=== PATIENT | female | born 1995 | race American Indian/Alaskan Native ===

== ENCOUNTER 2018-12-08 09:25 | Emergency (ER) | payer SELFPAY ==
[2018-12-08 09:43] VITALS: BP 110/77
--- NOTE | 2018-12-08 10:04 | Emergency Department Report ---
ED Rash HPI - HPI Chief Complaint: Skin Rash Stated Complaint: CHEST AND SPOTS ON CHEST Time Seen by Provider: 12/08/18 09:54 Duration: 3 Days Location: Chest, Back, Abdomen, Upper Extremities Suspected Cause: Unknown Rash Symptoms: Yes Itching, No Facial Swelling, No Tongue/Oral Swelling, No Breathing Difficulties, No Choking Sensation, No Wheezing/Dyspnea, No Peeling, No Blistering, No Fever, No Lightheaded, No Malaise, No Myalgias Severity: moderate ED Review of Systems ROS: Stated complaint: CHEST AND SPOTS ON CHEST Other details as noted in HPI Comment: All other systems reviewed and negative ED Past Medical Hx - Past Medical History Previous Medical History?: No - Surgical History Past Surgical History?: No - Social History Smoking Status: Never Smoker - Medications Home Medications: Home Medications Medication Instructions Recorded Confirmed Last Taken Type Triamcinolone 0.1% [Kenalog 0.1% 1 applic TP TID #1 tube 12/08/18 Unknown Rx CREAM] predniSONE [Deltasone] 10 mg PO .TAPER #21 tab 12/08/18 Unknown Rx Rash Exam - Exam General: Vital signs noted. No distress. Alert and acting appropriately. HEENT: No Periorbital Edema, No Conjuctival Injection, No Chemosis, No Perioral Edema, No Tongue Edema, No Uvular Edema, No Compromised Airway, No Drooling Lungs: Yes Good Air Exchange (Normal Breath Sounds), No Wheezes, No Ronchi, No S tridor, No Cough, No Labored Respirations, No Retractions, No Use of Accessory Muscles, No Other Abnormal Lung Sounds Heart: Yes Regular, No Murmur Skin: Yes Maculopapular Rash Other: Positive: Abdomen Normal, Neurologic Normal, Musculoskeletal Normal ED Course Vital Signs 12/08/18 09:38 Temperature 97.9 F Pulse Rate 83 Respiratory 18 Rate Blood Pressure 110/77 O2 Sat by Pulse 100 Oximetry ED Medical Decision Making - Medical Decision Making 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 Patient will be discharged home with meds for symptomatic relief. Critical care attestation.: If time is entered above; I have spent that time in minutes in the direct care of this critically ill patient, excluding procedure time. 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
== END 2018-12-08 10:17 | disposition home or self-care (01) ==
LOC: ED 09:25
DX: L21.0 Seborrhea capitis (principal)
CPT/HCPCS: 99282

== ENCOUNTER 2019-04-08 20:59 | Emergency (ER) | payer SELFPAY ==
[2019-04-08 21:07] VITALS: BP 126/79
[2019-04-08] MEDS ORDERED: IBUPROFEN PO ONE (22:50)
[2019-04-08] MEDS ORDERED: DIFLUCAN PO ONE (22:50)
--- NOTE | 2019-04-09 00:18 | Emergency Department Report ---
ED Female HPI - General Chief complaint: Laceration/Recheck/Suture Stated complaint: CUT HERSELF SHAVING PRIVATE AREA Time Seen by Provider: 04/08/19 22:50 Source: patient Mode of arrival: Ambulatory Limitations: No Limitations - History of Present Illness Initial comments: pt is a 23 y/o aaf who presents s/p vaginal abrasion after shaving 5 days ago no with itching erythema then white vagina discarge tp denies concern for STD no contacts prior or since symptoms there is no fever no n/v no abd pain MD Complaint: vaginal discharge (white thick ) Onset/Timin -: days(s) Radiation: non-radiating Severity: mild Severity scale (0 -10): 3 Quality: other (itcing) Consistency: constant Improves with: none Worsens with: none Are you Now?: No Last Menstrual Period: 03/27/19 EDC: 01/01/20 Associated Symptoms: vaginal discharge - Related Data Sexually active: Yes Previous Rx's Medication Instructions Recorded Last Taken Type Triamcinolone 0.1% [Kenalog 0.1% 1 applic TP TID #1 tube 12/08/18 Unknown Rx CREAM] predniSONE [Deltasone] 10 mg PO .TAPER #21 tab 12/08/18 Unknown Rx metroNIDAZOLE [Flagyl] 500 mg PO BID 10 Days #20 tab 04/09/19 Unknown Rx Allergies Allergy/AdvReac Type Severity Reaction Status Date / Time No Known Allergies Allergy Verified 12/08/18 09:43 ED Review of Systems ROS: Stated complaint: CUT HERSELF SHAVING PRIVATE AREA Other details as noted in HPI Constitutional: denies: chills, fever Eyes: denies: eye pain, eye discharge, vision change ENT: denies: ear pain, throat pain Respiratory: denies: cough, shortness of breath, wheezing Cardiovascular: denies: chest pain, palpitations Endocrine: no symptoms reported Gastrointestinal: denies: abdominal pain, nausea, diarrhea Genitourinary: discharge, other (vaginal itching). denies: urgency, dysuria Musculoskeletal: denies: back pain, joint swelling, arthralgia Skin: denies: rash, lesions Neurological: denies: headache, weakness, paresthesias Psychiatric: denies: anxiety, depression Hematological/Lymphatic: denies: easy bleeding, easy bruising ED Past Medical Hx - Past Medical History Previous Medical History?: No - Surgical History Past Surgical History?: No - Social History Smoking Status: Never Smoker Substance Use Type: None - Medications Home Medications: Home Medications Medication Instructions Recorded Confirmed Last Taken Type Triamcinolone 0.1% [Kenalog 0.1% 1 applic TP TID #1 tube 12/08/18 Unknown Rx CREAM] predniSONE [Deltasone] 10 mg PO .TAPER #21 tab 12/08/18 Unknown Rx metroNIDAZOLE [Flagyl] 500 mg PO BID 10 Days #20 tab 04/09/19 Unknown Rx ED Physical Exam - General Limitations: No Limitations General appearance: alert, in no apparent distress - Head Head exam: Present: atraumatic, normocephalic - Eye Eye exam: Present: normal appearance - ENT ENT exam: Present: mucous membranes moist - Neck Neck exam: Present: normal inspection - Respiratory Respiratory exam: Present: normal lung sounds bilaterally. Absent: respiratory distress - Cardiovascular Cardiovascular Exam: Present: regular rate, normal rhythm. Absent: systolic murmur, diastolic murmur, rubs, gallop - GI/Abdominal GI/Abdominal exam: Present: soft, normal bowel sounds. Absent: distended, tenderness, guarding, rebound, rigid, bruit, hernia - Rectal Rectal exam: Present: deferred - External exam: Present: erythema. Absent: swelling, lesions, lacerations, ecchymosis, bleeding Speculum exam: Present: erythema, vaginal discharge. Absent: cervical discharge, vaginal bleeding, foreign body, tissue, laceration Bi-manual exam: Absent: cervical motion tendernes - Extremities Exam Extremities exam: Present: normal inspection, full ROM, normal capillary refill. Absent: tenderness - Back Exam Back exam: Present: normal inspection, full ROM. Absent: tenderness, CVA tenderness (R), CVA tenderness (L), muscle spasm, rash noted - Neurological Exam Neurological exam: Present: alert, oriented X3, CN II-XII intact, normal gait, reflexes normal - Psychiatric Psychiatric exam: Present: normal affect, normal mood - Skin Skin exam: Present: warm, dry, intact, normal color. Absent: rash ED Course Vital Signs 04/08/19 04/08/19 21:03 21:04 Temperature 98.8 F 98.8 F Pulse Rate 90 87 Respiratory 18 18 Rate Blood Pressure 126/79 126/79 O2 Sat by Pulse 99 99 Oximetry ED Medical Decision Making - Medical Decision Making this is bv , makenna vaginitis plan noman rod , follow up with pcp in 2-3 days return to ed if symptoms worsen, pt verbalized agreement and understanding of same. Critical care attestation.: If time is entered above; I have spent that time in minutes in the direct care of this critically ill patient, excluding procedure time. ED Disposition Clinical Impression: Vaginitis Qualifiers: Chronicity: acute Qualified Code(s): N76.0 - Acute vaginitis Disposition: TO HOME OR SELFCARE Is pt being admited?: No Does the pt Need Aspirin: No Condition: Stable Instructions: Vaginitis (ED) Prescriptions: metroNIDAZOLE [Flagyl] 500 mg PO BID 10 Days #20 tab Referrals: GREGORIA TORRES MD [Staff Physician] - 3-5 Days Forms: Work/School Release Form(ED) Time of Disposition: 00:23
== END 2019-04-09 00:36 | disposition home or self-care (01) ==
LOC: ED 20:59
DX: N76.0 Acute vaginitis (principal)
CPT/HCPCS: 99282

== ENCOUNTER 2019-04-11 08:50 | Emergency (ER) | payer SELFPAY ==
--- NOTE | 2019-04-11 10:31 | Emergency Department Report ---
ED Female HPI - General Chief complaint: Skin Rash Stated complaint: BV WORSE WHILE TAKING PRESCRIPTION MEDS Time Seen by Provider: 04/11/19 09:59 Source: patient Mode of arrival: Ambulatory Limitations: No Limitations - History of Present Illness Initial comments: dx BV a few days ago and has increased "bumps"/pain MD Complaint: vaginal discharge, other (rash) Location: labia, perineum Radiation: non-radiating Severity: mild Quality: burning Consistency: constant Improves with: none Worsens with: none Are you Now?: No Associated Symptoms: vaginal discharge - Related Data Previous Rx's Medication Instructions Recorded Last Taken Type Triamcinolone 0.1% [Kenalog 0.1% 1 applic TP TID #1 tube 12/08/18 Unknown Rx CREAM] predniSONE [Deltasone] 10 mg PO .TAPER #21 tab 12/08/18 Unknown Rx metroNIDAZOLE [Flagyl] 500 mg PO BID 10 Days #20 tab 04/09/19 Unknown Rx Valacyclovir HCl [Valtrex] 1,000 mg PO BID #20 tablet 04/11/19 Unknown Rx Allergies Allergy/AdvReac Type Severity Reaction Status Date / Time No Known Allergies Allergy Verified 04/11/19 08:58 ED Review of Systems ROS: Stated complaint: BV WORSE WHILE TAKING PRESCRIPTION MEDS Other details as noted in HPI Comment: All other systems reviewed and negative Genitourinary: as per HPI ED Past Medical Hx - Past Medical History Previous Medical History?: No - Surgical History Past Surgical History?: No - Social History Smoking Status: Never Smoker Substance Use Type: Alcohol - Medications Home Medications: Home Medications Medication Instructions Recorded Confirmed Last Taken Type Triamcinolone 0.1% [Kenalog 0.1% 1 applic TP TID #1 tube 12/08/18 Unknown Rx CREAM] predniSONE [Deltasone] 10 mg PO .TAPER #21 tab 12/08/18 Unknown Rx metroNIDAZOLE [Flagyl] 500 mg PO BID 10 Days #20 tab 04/09/19 Unknown Rx Valacyclovir HCl [Valtrex] 1,000 mg PO BID #20 tablet 04/11/19 Unknown Rx ED Physical Exam - General Limitations: No Limitations General appearance: alert, in no apparent distress - Head Head exam: Present: atraumatic, normocephalic - Eye Eye exam: Present: normal appearance - ENT ENT exam: Present: mucous membranes moist - Neck Neck exam: Present: normal inspection - Respiratory Respiratory exam: Present: normal lung sounds bilaterally. Absent: respiratory distress - Cardiovascular Cardiovascular Exam: Present: regular rate, normal rhythm. Absent: systolic murmur, diastolic murmur, rubs, gallop - GI/Abdominal GI/Abdominal exam: Present: soft, normal bowel sounds. Absent: tenderness - External exam: Present: lesions (c/w HSV in perineum) Speculum exam: Present: vaginal discharge (white, c/w BV) Bi-manual exam: Present: normal bi-manual exam. 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 ED Disposition Clinical Impression: HSV (herpes simplex virus) anogenital infection Disposition: - TO HOME OR SELFCARE Is pt being admited?: No Condition: Good Instructions: Genital Herpes Simplex (ED) Prescriptions: Valacyclovir HCl [Valtrex] 1,000 mg PO BID #20 tablet Referrals: [facility] [Provider Group] - 3-5 Days Time of Disposition: 11:17
[2019-04-11 12:17] VITALS: BP 121/78
== END 2019-04-11 12:16 | disposition home or self-care (01) ==
LOC: ED 08:50
DX: B00.9 Herpesviral infection, unspecified (principal)
CPT/HCPCS: 87591; 99283

== ENCOUNTER 2019-05-25 22:26 | Emergency (ER) | payer OTHER ==
[2019-05-25] MEDS ORDERED: DECADRON IV ONE (23:05)
[2019-05-25] MEDS ORDERED: NACL 0.9% 1000 ML 1,000 ML IV ONE (23:05)
[2019-05-25] MEDS ORDERED: CLEOCIN 900 MG/50 mL 900 MG/50 ML BAG IV ONE (23:05)
--- NOTE | 2019-05-25 23:15 | Emergency Department Report ---
ED ENT HPI - General Chief complaint: Sore Throat Stated complaint: THROAT PAIN TOOK MED X 5DAYS WORSE Time Seen by Provider: 05/25/19 22:41 Source: patient Mode of arrival: Ambulatory Limitations: No Limitations - History of Present Illness Initial comments: Patient is a 23-year-old female who presents to the emergency room with complaints of a sore throat that began 5 days ago. States she has pain with swallowing. pt has been spitting out her secretions secondary to pain. States she had a fever couple days ago. She denies any sick contacts. She states she has been using viscous lidocaine, prednisone, ibuprofen, promethazine cough syrup. she has not seen anyone for this but had left over medication and medication from her sister. She denies any past medical history or allergies to medications. - Related Data Previous Rx's Medication Instructions Recorded Last Taken Type Triamcinolone 0.1% [Kenalog 0.1% 1 applic TP TID #1 tube 12/08/18 Unknown Rx CREAM] predniSONE [Deltasone] 10 mg PO .TAPER #21 tab 12/08/18 Unknown Rx metroNIDAZOLE [Flagyl] 500 mg PO BID 10 Days #20 tab 04/09/19 Unknown Rx Valacyclovir HCl [Valtrex] 1,000 mg PO BID #20 tablet 04/11/19 Unknown Rx Acetaminophen/Codeine [Tylenol 1 tab PO Q6H PRN #7 tab 05/26/19 Unknown Rx /Codeine # 3 tab] Clindamycin [Clindamycin CAP] 450 mg PO TID 7 Days #63 capsule 05/26/19 Unknown Rx Prednisone [predniSONE 10 mg 10 mg PO .TAPER #1 tab.ds.pk 05/26/19 Unknown Rx (6-Day Pack, 21 Tabs)] Allergies Allergy/AdvReac Type Severity Reaction Status Date / Time No Known Allergies Allergy Verified 04/11/19 08:58 ED Dental HPI - General Chief complaint: Sore Throat Stated complaint: THROAT PAIN TOOK MED X 5DAYS WORSE Time Seen by Provider: 05/25/19 22:41 Source: patient Mode of arrival: Ambulatory Limitations: No Limitations - Related Data Previous Rx's Medication Instructions Recorded Last Taken Type Triamcinolone 0.1% [Kenalog 0.1% 1 applic TP TID #1 tube 12/08/18 Unknown Rx CREAM] predniSONE [Deltasone] 10 mg PO .TAPER #21 tab 12/08/18 Unknown Rx metroNIDAZOLE [Flagyl] 500 mg PO BID 10 Days #20 tab 04/09/19 Unknown Rx Valacyclovir HCl [Valtrex] 1,000 mg PO BID #20 tablet 04/11/19 Unknown Rx Acetaminophen/Codeine [Tylenol 1 tab PO Q6H PRN #7 tab 05/26/19 Unknown Rx /Codeine # 3 tab] Clindamycin [Clindamycin CAP] 450 mg PO TID 7 Days #63 capsule 05/26/19 Unknown Rx Prednisone [predniSONE 10 mg 10 mg PO .TAPER #1 tab.ds.pk 05/26/19 Unknown Rx (6-Day Pack, 21 Tabs)] Allergies Allergy/AdvReac Type Severity Reaction Status Date / Time No Known Allergies Allergy Verified 04/11/19 08:58 ED Review of Systems ROS: Stated complaint: THROAT PAIN TOOK MED X 5DAYS WORSE Other details as noted in HPI Comment: All other systems reviewed and negative ED Past Medical Hx - Past Medical History Previous Medical History?: No - Surgical History Past Surgical History?: No - Social History Smoking Status: Never Smoker Substance Use Type: None - Medications Home Medications: Home Medications Medication Instructions Recorded Confirmed Last Taken Type Triamcinolone 0.1% [Kenalog 0.1% 1 applic TP TID #1 tube 12/08/18 Unknown Rx CREAM] predniSONE [Deltasone] 10 mg PO .TAPER #21 tab 12/08/18 Unknown Rx metroNIDAZOLE [Flagyl] 500 mg PO BID 10 Days #20 tab 04/09/19 Unknown Rx Valacyclovir HCl [Valtrex] 1,000 mg PO BID #20 tablet 04/11/19 Unknown Rx Acetaminophen/Codeine [Tylenol 1 tab PO Q6H PRN #7 tab 05/26/19 Unknown Rx /Codeine # 3 tab] Clindamycin [Clindamycin CAP] 450 mg PO TID 7 Days #63 capsule 05/26/19 Unknown Rx Prednisone [predniSONE 10 mg 10 mg PO .TAPER #1 tab.ds.pk 05/26/19 Unknown Rx (6-Day Pack, 21 Tabs)] ED Physical Exam - General Limitations: No Limitations General appearance: alert, in no apparent distress - Head Head exam: Present: atraumatic, normocephalic - ENT ENT exam: Present: other (left sided tonsillar edema with deviation of the uvula, no uvular edema, airway is patent) - Respiratory Respiratory exam: Present: normal lung sounds bilaterally. Absent: respiratory distress, wheezes, rales, rhonchi, stridor, chest wall tenderness, accessory muscle use, decreased breath sounds, prolonged expiratory - Cardiovascular Cardiovascular Exam: Present: regular rate, normal rhythm, normal heart sounds. Absent: systolic murmur, diastolic murmur, rubs, gallop - Neurological Exam Neurological exam: Present: alert, oriented X3 - Psychiatric Psychiatric exam: Present: normal affect, normal mood - Skin Skin exam: Present: warm, dry, intact ED Course Vital Signs 05/26/19 02:01 Temperature 98 F Pulse Rate 81 Respiratory 16 Rate Blood Pressure 117/72 [Left] O2 Sat by Pulse 100 Oximetry ED Medical Decision Making - Lab Data Result diagrams: 05/25/19 23:19 05/25/19 23:19 Lab Results 05/25/19 05/25/19 05/25/19 Range/Units 23:19 23:19 23:19 WBC 14.5 H (4.5-11.0) K/mm3 RBC 4.27 (3.65-5.03) M/mm3 Hgb 10.3 (10.1-14.3) gm/dl Hct 31.7 (30.3-42.9) % MCV 74 L (79-97) fl MCH 24 L (28-32) pg MCHC 32 (30-34) % RDW 17.2 H (13.2-15.2) % Plt Count 343 (140-440) K/mm3 Sodium 138 (137-145) mmol/L Potassium 3.1 L (3.6-5.0) mmol/L Chloride 101.4 (98-107) mmol/L Carbon Dioxide 27 (22-30) mmol/L Anion Gap 13 mmol/L BUN 8 (7-17) mg/dL Creatinine 0.7 (0.7-1.2) mg/dL Estimated GFR > 60 ml/min BUN/Creatinine Ratio 11 % Glucose 88 (65-100) mg/dL Calcium 9.0 (8.4-10.2) mg/dL HCG, Qual Negative (Negative) - Radiology Data Radiology results: report reviewed CT scan of the neck with contrast: INDICATION: left sided tonsillar edema TECHNIQUE: Contiguous thin cut axial images obtained through the neck following intravenous injection of 100 mL Omnipaque 300. Sagittal and coronal reconstructions performed by the technologist. All CT scans at this location are performed using CT dose reduction for ALARA by means of automated exposure control. COMPARISON: None available. FINDINGS: 2 cm (sagittal) by 15 mm (transverse) by 2 cm (height) sized low density area with the faintly enhancing rim is seen in the left tonsillar fossae area consistent with a tonsillar abscess. Reactive lymph nodes are seen at level bilaterally larger on the left side. Airway is mildly displaced towards the right side. MUCOSAL SPACE: Pharyngeal mucosal space soft tissue prominent due to lymphoid hyperplasia. Oral tongue and floor of the mouth are normal.. LYMPH NODES: Enlarged lymph nodes (reactive) seen at level 2 more on the left side. SALIVARY GLANDS: Parotid, submandibular, and visualized sublingual glands are within normal limits. THYROID GLAND: Unremarkable. PARANASAL SINUSES: Visualized paranasal sinuses and mastoid air cells are essentially clear. SPINE: No significant abnormality of the cervical spine appreciated. VASCULAR STRUCTURES: Vascular structures are grossly normal in appearance. Surrounding soft tissues are otherwise grossly normal. IMPRESSION: Left peritonsillar abscess Signer Name: Celia Arnold MD Signed: 05/26/2019 1:30 AM Workstation Name: [id number] Transcribed By: BS Dictated By: Celia Berkowitz MD Electronically Authenticated By: Celia Berkowitz MD Signed Date/Time: 05/26/19 0130 - Medical Decision Making Patient is a 23-year-old female who presents to the emergency room with complaints of a sore throat that began 5 days ago. States she has pain with swallowing. pt has been spitting out her secretions secondary to pain. States she had a fever couple days ago. She denies any sick contacts. She states she has been using viscous lidocaine, prednisone, ibuprofen, promethazine cough syrup. she has not seen anyone for this but had left over medication and med ication from her sister. She denies any past medical history or allergies to medications. vitals are normal. on exam: left sided tonsillar edema with deviation of the uvula, no uvular edema, airway is patent, breath sounds are normal bilaterally. pt is able to swallow her secretions while in the ED she just states it is uncomfortable when she does so. labs with elevated WBC at 14 and hypokalemia at 3.1. discussed with pt to increase potassium intake and discussed what foods to eat. CT neck with contrast shows Left peritonsillar abscess. after discussing results, pt states she has had a peritonsillar abscess before that had to be drained. discussed pt and results with Dr. Cece melgar who recommended outpatient ENT referral and to give pt clindamycin and advise to return if new or worsening symptoms or if symptoms not improving. pt given prescription for clindamycin, prednisone, and tylenol with codeine. advised to please take medication as prescribed to completion. do not drive or operate heavy machinery while taking pain medicine. discussed with pt that it is very important that you follow-up with an ENT doctor in the next 2-3 days. Return to the emergency room immediately for any new or worsening symptoms or if symptoms are not improving. - Differential Diagnosis strep throat, pharyngitis, tonsillitis, peritonsillar abscess Critical care attestation.: If time is entered above; I have spent that time in minutes in the direct care of this critically ill patient, excluding procedure time. ED Disposition Clinical Impression: Peritonsillar abscess, Hypokalemia Leukocytosis Qualifiers: Leukocytosis type: unspecified Qualified Code(s): D72.829 - Elevated white blood cell count, unspecified Disposition: TO HOME OR SELFCARE Is pt being admited?: No Does the pt Need Aspirin: No Condition: Stable Instructions: Peritonsillar Abscess (ED) Additional Instructions: Please take medication as prescribed to completion. It is very important that you follow-up with an ENT doctor in the next 2-3 days. Return to the emergency room immediately for any new or worsening symptoms or if symptoms are not improving. Prescriptions: Clindamycin [Clindamycin CAP] 450 mg PO TID 7 Days #63 capsule Prednisone [predniSONE 10 mg (6-Day Pack, 21 Tabs)] 10 mg PO .TAPER #1 tab.ds.pk Acetaminophen/Codeine [Tylenol /Codeine # 3 tab] 1 tab PO Q6H PRN #7 tab PRN Reason: Pain , Severe (7-10) Referrals: JANI JAEGER MD [Staff Physician] - 2-3 Days ADE WALLS MD [Staff Physician] - 2-3 Days Time of Disposition: 01:44 Print Language: KAZAKH
[2019-05-25 23:32] LABS: Hematocrit 31.7 % (30.3-42.9); Hemoglobin 10.3 gm/dl (10.1-14.3); Mean Corpuscular HGB Conc 32 % (30-34); Mean Corpuscular Volume 74 fl (79-97); Platelet Count 343 K/mm3 (140-440); Red Blood Count 4.27 M/mm3 (3.65-5.03); Red Cell Distribution Width 17.2 % (13.2-15.2)
[2019-05-25 23:41] LABS: BUN/Creatinine Ratio 11; Blood Urea Nitrogen 8 mg/dL (7-17)
[2019-05-25 23:42] LABS: Hemolysis Index 2
--- NOTE | 2019-05-26 01:35 | Cat Scan Report ---
CT scan of the neck with contrast: INDICATION: left sided tonsillar edema TECHNIQUE: Contiguous thin cut axial images obtained through the neck following intravenous injection of 100 mL Omnipaque 300. Sagittal and coronal reconstructions performed by the technologist. All CT scans at [facility] location are performed using CT dose reduction for ALARA by means of automated exposure control. COMPARISON: None available. FINDINGS: 2 cm (sagittal) by 15 mm (transverse) by 2 cm (height) sized low density area with the oskar tly enhancing rim is seen in the left tonsillar fossae area consistent with a tonsillar abscess. Reac tive lymph nodes are seen at level bilaterally larger on the left side. Airway is mildly displaced towards the right side. MUCOSAL SPACE: Pharyngeal mucosal space soft tissue prominent due to lymphoid hyperplasia. Oral tongu e and floor of the mouth are normal.. LYMPH NODES: Enlarged lymph nodes (reactive) seen at level 2 more on the left side. SALIVARY GLANDS: Parotid, submandibular, and visualized sublingual glands are within normal limits. THYROID GLAND: Unremarkable. PARANASAL SINUSES: Visualized paranasal sinuses and mastoid air cells are essentially clear. SPINE: No significant abnormality of the cervical spine appreciated. VASCULAR STRUCTURES: Vascular structures are grossly normal in appearance. Surrounding soft tissues are otherwise grossly normal. IMPRESSION: Left peritonsillar abscess Signer Name: Celia Arnold MD Signed: 05/26/2019 1:30 AM Workstation Name: [id number]
[2019-05-26 02:02] VITALS: BP 117/72
[2019-05-26 10:00] LABS: Basophils % (Manual) 0 % (0.0-1.8); Eosinophils % (Manual) 0 % (0.0-4.3); Total Cells Counted 100
[2019-05-26 10:01] LABS: Anisocytosis 1+; Hypochromasia 1+; Platelet Estimate Consistent w Auto
== END 2019-05-26 02:01 | disposition home or self-care (01) ==
LOC: ED 22:26
DX: J36 Peritonsillar abscess (principal); D72.829 Elevated white blood cell count, unspecified; E87.6 Hypokalemia
CPT/HCPCS: 36415; 70491; 80048; 84703; 85007; 85025; 96365; 96366; 96375; 99284; J1100; J7030; Q9967

== ENCOUNTER 2019-10-22 23:35 | Emergency (ER) | payer OTHER ==
[2019-10-23] MEDS ORDERED: ACETAMINOPHEN 500 MG TAB PO ONE (01:21)
[2019-10-23] MEDS ORDERED: IBUPROFEN 600 MG TAB PO ONE (01:21)
[2019-10-23] MEDS ORDERED: predniSONE 20 MG TAB PO ONE (01:28)
--- NOTE | 2019-10-23 01:28 | Emergency Department Report ---
- General Chief Complaint: Upper Respiratory Infection Stated Complaint: DARIEL, COLD SXS, BODY PAIN, HEADACHE Source: patient Mode of arrival: Ambulatory Limitations: No Limitations - History of Present Illness Initial Comments: Patient is a 24-year-old -[place] female with no past medical history who presents to the ED with complaint of acute onset persistent severe diffuse body aches and pains, intermittent fever and chills, nasal and sinus congestion, frontal sinus pressure and headache, sore throat and dry cough with lack of appetite for the last 2 days. Patient states that other people at work have had similar symptoms. Patient denies dizziness, syncope, chest pain, shortness of breath, change in vision, abdominal pain, diarrhea, dysuria, urinary frequency and urgency, nausea and vomiting. MD Complaint: fever, cough, sore throat, rhinorrhea, nasal congestion, sinus pain, other (diffuse body aches and pains) -: Sudden, days(s) (2) Severity: severe Severity scale (0 -10): 7 Quality: sharp, aching Consistency: constant Improves With: nothing Worsens With: nothing Context: sick contacts Associated Symptoms: denies other symptoms, fever, chills, myalgias, headache, rhinorrhea, nasal congestion, sore throat, cough. denies: diaphoresis, stiff neck, chest pain, abdominal pain, vomiting, diarrhea, rash, confusion, weight loss, hoarseness, ear pain Treatments Prior to Arrival: none - Related Data Previous Rx's Medication Instructions Recorded Last Taken Type Triamcinolone 0.1% [Kenalog 0.1% 1 applic TP TID #1 tube 12/08/18 Unknown Rx CREAM] predniSONE [Deltasone] 10 mg PO .TAPER #21 tab 12/08/18 Unknown Rx metroNIDAZOLE [Flagyl] 500 mg PO BID 10 Days #20 tab 04/09/19 Unknown Rx Valacyclovir HCl [Valtrex] 1,000 mg PO BID #20 tablet 04/11/19 Unknown Rx Acetaminophen/Codeine [Tylenol 1 tab PO Q6H PRN #7 tab 05/26/19 Unknown Rx /Codeine # 3 tab] Clindamycin [Clindamycin CAP] 450 mg PO TID 7 Days #63 capsule 05/26/19 Unknown Rx Prednisone [predniSONE 10 mg 10 mg PO .TAPER #1 tab.ds.pk 05/26/19 Unknown Rx (6-Day Pack, 21 Tabs)] Amoxicillin/Potassium Clav 1 each PO Q12H #20 tablet 10/23/19 Unknown Rx [Augmentin 875-125 Tablet] Benzonatate [Tessalon Perles] 100 mg PO Q8HR #30 capsule 10/23/19 Unknown Rx Cetirizine HCl [Zyrtec 10mg tab] 10 mg PO DAILY #30 tablet 10/23/19 Unknown Rx Ibuprofen [Motrin] 800 mg PO Q8HR PRN #24 tablet 10/23/19 Unknown Rx methylPREDNISolone [Medrol 4MG 4 mg PO DAILY #21 tab.ds.pk 10/23/19 Unknown Rx DOSEPAK (21 tabs)] Allergies Allergy/AdvReac Type Severity Reaction Status Date / Time No Known Allergies Allergy Verified 04/11/19 08:58 ED Review of Systems ROS: Stated complaint: DARIEL, COLD SXS, BODY PAIN, HEADACHE Other details as noted in HPI Constitutional: chills, fever, malaise Eyes: denies: eye pain, eye discharge, vision change ENT: throat pain, congestion. denies: ear pain Respiratory: cough. denies: shortness of breath, SOB with exertion, SOB at rest, wheezing Cardiovascular: denies: chest pain, palpitations Endocrine: no symptoms reported Gastrointestinal: denies: abdominal pain, nausea, diarrhea Genitourinary: denies: urgency, dysuria, discharge Musculoskeletal: back pain, arthralgia, myalgia. denies: joint swelling Skin: denies: rash, lesions Neurological: headache. denies: weakness, paresthesias Psychiatric: denies: anxiety, depression Hematological/Lymphatic: denies: easy bleeding, easy bruising ED Past Medical Hx - Past Medical History Previous Medical History?: No - Surgical History Past Surgical History?: No - Social History Smoking Status: Never Smoker - Medications Home Medications: Home Medications Medication Instructions Recorded Confirmed Last Taken Type Triamcinolone 0.1% [Kenalog 0.1% 1 applic TP TID #1 tube 12/08/18 Unknown Rx CREAM] predniSONE [Deltasone] 10 mg PO .TAPER #21 tab 12/08/18 Unknown Rx metroNIDAZOLE [Flagyl] 500 mg PO BID 10 Days #20 tab 04/09/19 Unknown Rx Valacyclovir HCl [Valtrex] 1,000 mg PO BID #20 tablet 04/11/19 Unknown Rx Acetaminophen/Codeine [Tylenol 1 tab PO Q6H PRN #7 tab 05/26/19 Unknown Rx /Codeine # 3 tab] Clindamycin [Clindamycin CAP] 450 mg PO TID 7 Days #63 capsule 05/26/19 Unknown Rx Prednisone [predniSONE 10 mg 10 mg PO .TAPER #1 tab.ds.pk 05/26/19 Unknown Rx (6-Day Pack, 21 Tabs)] Amoxicillin/Potassium Clav 1 each PO Q12H #20 tablet 10/23/19 Unknown Rx [Augmentin 875-125 Tablet] Benzonatate [Tessalon Perles] 100 mg PO Q8HR #30 capsule 10/23/19 Unknown Rx Cetirizine HCl [Zyrtec 10mg tab] 10 mg PO DAILY #30 tablet 10/23/19 Unknown Rx Ibuprofen [Motrin] 800 mg PO Q8HR PRN #24 tablet 10/23/19 Unknown Rx methylPREDNISolone [Medrol 4MG 4 mg PO DAILY #21 tab.ds.pk 10/23/19 Unknown Rx DOSEPAK (21 tabs)] ED Physical Exam - General Limitations: No Limitations General appearance: alert, in no apparent distress - Head Head exam: Present: atraumatic, normocephalic - Eye Eye exam: Present: normal appearance, PERRL, EOMI Pupils: Present: normal accommodation - ENT ENT exam: Present: normal exam, mucous membranes moist, TM's normal bilaterally, normal external ear exam, other (grossly congested nasal passages; palpable tenderness on frontal sinus; erythematous oropharynx, no swollen tonsils) - Neck Neck exam: Present: normal inspection, full ROM, lymphadenopathy - Respiratory Respiratory exam: Present: normal lung sounds bilaterally. Absent: respiratory distress, wheezes, rales, rhonchi, chest wall tenderness, accessory muscle use, decreased breath sounds, prolonged expiratory - Cardiovascular Cardiovascular Exam: Present: normal rhythm, tachycardia, normal heart sounds. Absent: systolic murmur, diastolic murmur, rubs, gallop - GI/Abdominal GI/Abdominal exam: Present: soft, normal bowel sounds. Absent: tenderness, guarding, hypoactive bowel sounds - Extremities Exam Extremities exam: Present: normal inspection, full ROM, normal capillary refill - Back Exam Back exam: Present: normal inspection, full ROM. Absent: CVA tenderness (R), CVA tenderness (L), muscle spasm, paraspinal tenderness - Neurological Exam Neurological exam: Present: alert, oriented X3, CN II-XII intact, normal gait, reflexes normal - Psychiatric Psychiatric exam: Present: normal affect, normal mood - Skin Skin exam: Present: warm, dry, intact, normal color. Absent: rash ED Course Vital Signs 10/22/19 23:48 Temperature 100.3 F H Pulse Rate 105 H Respiratory 18 Rate Blood Pressure 123/75 O2 Sat by Pulse 99 Oximetry - Reevaluation(s) Reevaluation #1: 10/23/19 01:38 This is a 24-year-old female who presented to the ED with flulike symptoms characterized by diffuse body aches and pains, nasal and sinus congestion, sore throat, dry cough, intermittent fever of after 100F with chills and headache for 2 days. In the ED, patient is tachycardic and febrile, alert and oriented 3 and is not in distress. Patient was treated for fever and pain and discharged home on medications based on physical exam findings. Patient is a advised to follow-up with her primary care physician in 5-7 days for reevaluation or return to the ED immediately if symptoms get worse. ED Medical Decision Making - Medical Decision Making This is a 24-year-old female who presented to the ED with flulike symptoms characterized by diffuse body aches and pains, nasal and sinus congestion, sore throat, dry cough, intermittent fever of after 100F with chills and headache for 2 days. In the ED, patient is tachycardic and febrile, alert and oriented 3 and is not in distress. Patient was treated for fever and pain and discharged home on medications based on physical exam findings. Patient is a advised to follow-up with her primary care physician in 5-7 days for reeval uation or return to the ED immediately if symptoms get worse. - Differential Diagnosis Flu; Sinusitis; Strep Pharyngitis; Pneumonia; Bronchitis; URI; UTI Critical care attestation.: If time is entered above; I have spent that time in minutes in the direct care of this critically ill patient, excluding procedure time. ED Disposition Clinical Impression: Acute upper respiratory infection Acute bronchitis Qualifiers: Bronchitis organism: other organism Qualified Code(s): J20.8 - Acute bronchitis due to other specified organisms Acute frontal sinusitis Qualifiers: Recurrence: non-recurrent Qualified Code(s): J01.10 - Acute frontal sinusitis, unspecified Acute pharyngitis Qualifiers: Pharyngitis/tonsillitis etiology: unspecified etiology Qualified Code(s): J02.9 - Acute pharyngitis, unspecified Disposition: DC- TO HOME OR SELFCARE Is pt being admited?: No Does the pt Need Aspirin: No Condition: Stable Instructions: Acute Bronchitis (ED), Acute Bacterial Rhinosinusitis (ED), Pharyngitis (ED), Fever in Adults (ED), Upper Respiratory Infection (ED) Additional Instructions: Take medication with food, drink plenty of fluids and follow-up with your primary care physician in 5-7 days for reevaluation. Return to the ED immediately if symptoms get worse. Prescriptions: Amoxicillin/Potassium Clav [Augmentin 875-125 Tablet] 1 each PO Q12H #20 tablet methylPREDNISolone [Medrol 4MG DOSEPAK (21 tabs)] 4 mg PO DAILY #21 tab.ds.pk Ibuprofen [Motrin] 800 mg PO Q8HR PRN #24 tablet PRN Reason: Pain , Severe (7-10) Benzonatate [Tessalon Perles] 100 mg PO Q8HR #30 capsule Cetirizine HCl [Zyrtec 10mg tab] 10 mg PO DAILY #30 tablet Forms: Work/School Release Form(ED) Time of Disposition: 01:25 Print Language: [id number]
[2019-10-23] MEDS ORDERED: FAMOTIDINE 20 MG TAB PO ONE (01:29)
[2019-10-23 03:56] VITALS: BP 111/69
== END 2019-10-23 02:16 | disposition home or self-care (01) ==
LOC: ED 23:35
DX: J06.9 Acute upper respiratory infection, unspecified (principal); J20.9 Acute bronchitis, unspecified; J01.10 Acute frontal sinusitis, unspecified; J02.9 Acute pharyngitis, unspecified; Z98.890 Other specified postprocedural states; Z79.899 Other long term (current) drug therapy
CPT/HCPCS: 99282; J7512